=== PATIENT | female | born 1985 | race Caucasian/White ===

== ENCOUNTER 2017-06-22 13:53 | Emergency (ER) | payer OTHER ==
--- NOTE | 2017-06-22 14:43 | EDPHY ---
H & P Stated Complaint: RUQ ABD PAIN/RADIATES INTO BACK AND R SCAPULAR AREA/COLICKY HPI/ROS: HPI CHIEF COMPLAINT: Abdominal pain HISTORY OF PRESENT ILLNESS: Patient is a very pleasant 31 old female otherwise healthy no significant medical history does not take any daily medications she presents emergency room with right upper quadrant epigastric abdominal pain. She describes as starting initially on Sunday. It has been intermittent and persistent over the past week. Worse after she eats and drinks. Denies chest pain or pleuritic pain however she does report that she has pain radiating to her right shoulder. He became more intense this morning. No vomiting. No fever. No lower abdominal pain. Denies being . Past Medical History: Denies medical history Past Surgical History: Tonsillectomy and wisdom teeth. Social History: Drinks 8 beers per week she works at [employer], smokes marijuana , denies tobacco. Or other illicit drugs. Family History: Noncontributory ROS REVIEW OF SYSTEMS: A comprehensive 10 point review of systems is otherwise negative aside from elements mentioned in the history of present illness. Exam Constitutional appears well nontoxic triage nursing summary reviewed, vital signs reviewed, awake/alert. Eyes normal conjunctivae and sclera, EOMI, PERRLA. HENT normal inspection, atraumatic, moist mucus membranes, no epistaxis, neck supple/ no meningismus, no raccoon eyes. Respiratory clear to auscultation bilaterally, normal breath sounds, no respiratory distress, no wheezing. Cardiovascular rate normal, regular rhythm, no murmur, no edema, distal pulses normal. Gastrointestinal tender palpation right upper quadrant epigastric,, no rebound, no guarding, normal bowel sounds, no distension, no pulsatile mass. Genitourinary no CVA tenderness. Musculoskeletal no midline vertebral tenderness, full range of motion, no calf swelling, no tenderness of extremities, no meningismus, good pulses, neurovascularly intact. Skin pink, warm, & dry, no rash, skin atraumatic. Neurologic awake, alert and oriented x 3, AAOx3, moves all 4 extremities equally, motor intact, sensory intact, CN II-XII intact, normal cerebellar, normal vision, normal speech. Psychiatric normal mood/affect. Heme/Lymph/Immune no lymphadenopathy. Differential Diagnosis:Differential diagnosis includes but is not limited to and in no particular order: Bowel obstruction, appendicitis, gallbladder disease, diverticulitis, colitis, enteritis, perforated viscus, gastritis, GERD , esophagitis, urinary tract infection, pyelonephritis, kidney stones Medical Decision Making: IV establishment, IV fluid bolus, 0.5 mg IV Dilaudid for pain control IV Zofran 4 mg for nausea, ultrasound right upper quadrant. Blood work. Urinalysis re-evaluate Re-evaluation: Ultrasound of the abdomen limited right upper quadrant The results of the study are negative for acute cholecystitis or significant gallstones however there is a gallbladder polyp stable from previous ultrasound. I discussed the results of this study with the radiologist Dr. Darling EKG interpretation by me on record in Fingerprint system. Impression time of EKG 1523, this is sinus rhythm rate of 90. I do not appreciate acute ischemic changes. No ST elevation. ST depression or significant interval abnormality. 180: This patient D-dimer is noted to be positive. Will proceed with CT scan angiogram chest is CT scan abdomen pelvis with IV contrast to help delineate this right upper quadrant abdominal pain. Radiates to right shoulder. Her CT angiogram of her chest called to me by Dr. Lopez. There is no evidence of pulmonary embolism pneumonia pleural effusion or inflammatory process in the right lung field. CT scan abdomen pelvis with IV contrast shows no acute intra- abdominal pathology. I went over this with the patient. Went over CT scan result blood work. Unclear exactly was causing her pain. I will recommend Zantac for 2 weeks. It is possible this is an ulcer giving her pain given the pain gets worse after she eats and drinks. Recommend GI follow-up. Additionally strict return precautions were given she understands return emergency room if she develops worsening abdominal pain chest pain shortness of breath fever or vomiting. She understands. Source: Patient - Personal History LMP (Females 10-55): IUD In Place Current Tetanus/Diphtheria Vaccine: No - Medical/Surgical History Hx Asthma: No Hx Chronic Respiratory Disease: No Hx Diabetes: No Hx Cardiac Disease: No Hx Renal Disease: No Hx Cirrhosis: No Hx Alcoholism: No Hx HIV/AIDS: No Hx Splenectomy or Spleen Trauma: No Other PMH: TONSILECTOMY, WISDOM TEETH/ fx l arm - Social History Smoking Status: Former smoker Constitutional: Initial Vital Signs Temperature (C) 36.7 C 06/22/17 13:56 Heart Rate 78 06/22/17 13:56 Respiratory Rate 17 06/22/17 13:56 Blood Pressure 135/99 H 06/22/17 13:56 O2 Sat (%) 98 06/22/17 13:56 O2 Delivery Mode Room Air Allergies/Adverse Reactions: No Known Allergies Allergy (Verified 06/22/17 13:55) Home Medications: Medication Instructions Recorded Ranitidine HCl [Zantac] 150 mg PO DAILY #14 tablet 06/22/17 Medical Decision Making - Diagnostics Imaging Results: Imaging Impressions Abdomen Ultrasound 06/22/17 14:48 Impression: 1. Slight increase in size of a likely benign gallbladder polyp, since December 2014. Continued ultrasound follow-up is recommended, perhaps annually. 2. No source for right upper quadrant pain identified. Results called and discussed with Naun Garcia MD, at 06/22/2017 15:31 Chest X-Ray 06/22/17 15:43 Impression: Clear lungs. No acute process. Abdomen CT 06/22/17 16:35 Impression: 1. Mild constipation. 2. Appendicolith without evidence of appendicitis, bowel obstruction, or abscess. 3. No hepatosplenomegaly or ascites. 4. No significant adenopathy. Findings and recommendations discussed with Emergency Department physician, Naun Garcia MD at 1757 hour, 06/22/2017. Final report concurs with initial preliminary interpretation. Chest/Thorax CTA 06/22/17 16:35 Impression: 1. No definite pulmonary thromboemboli. 2. No aortic aneurysm or dissection. 3. No acute pulmonary disease. Findings and recommendations discussed with Emergency Department physician, Naun Garcia MD at 1750 hour, 06/22/2017. Final report concurs with initial preliminary interpretation. - Data Points Laboratory Results: Laboratory Results 06/22/17 14:45 06/22/17 14:45 06/22/17 06/22/17 06/22/17 14:50 14:45 14:45 WBC RBC Hgb Hct MCV MCH MCHC RDW Plt Count MPV Neut % (Auto) Lymph % (Auto) [place] % (Auto) Eos % (Auto) Baso % (Auto) Nucleat RBC Rel Count Absolute Neuts (auto) Absolute Lymphs (auto) Absolute Monos (auto) Absolute Eos (auto) Absolute Basos (auto) Absolute Nucleated RBC Immature Gran % Immature Gran # D-Dimer 1.97 ug/mLFEU H ug/mLFEU (0.00-0.50) Sodium Potassium Chloride Carbon Dioxide Anion Gap BUN Creatinine Estimated GFR Glucose Calcium Phosphorus Total Bilirubin Conjugated Bilirubin Unconjugated Bilirubin AST ALT Alkaline Phosphatase Total Protein Albumin Lipase Beta HCG, Qual NEGATIVE Urine Color PALE YELLOW Urine Appearance CLEAR Urine pH 7.0 (5.0-7.5) Ur Specific [place] 1.002 (1.002-1.030) Urine Protein NEGATIVE (NEGATIVE) Urine Ketones NEGATIVE (NEGATIVE) Urine Blood NEGATIVE (NEGATIVE) Urine Nitrate NEGATIVE (NEGATIVE) Urine Bilirubin NEGATIVE (NEGATIVE) Urine Urobilinogen NEGATIVE EU EU (0.2-1.0) Ur Leukocyte Esterase NEGATIVE (NEGATIVE) Urine Glucose NEGATIVE (NEGATIVE) 06/22/17 06/22/17 14:45 14:45 WBC 7.32 10^3/uL 10^3/uL (3.80-9.50) RBC 4.54 10^6/uL 10^6/uL (4.18-5.33) Hgb 16.2 g/dL g/dL (12.6-16.3) Hct 44.7 % % (38.0-47.0) MCV 98.5 fL fL (81.5-99.8) MCH 35.7 pg H pg (27.9-34.1) MCHC 36.2 g/dL g/dL (32.4-36.7) RDW 11.5 % % (11.5-15.2) Plt Count 225 10^3/uL 10^3/uL (150-400) MPV 9.5 fL fL (8.7-11.7) Neut % (Auto) 74.9 % H % (39.3-74.2) Lymph % (Auto) 19.1 % % (15.0-45.0) [place] % (Auto) 4.9 % % (4.5-13.0) Eos % (Auto) 0.4 % L % (0.6-7.6) Baso % (Auto) 0.4 % % (0.3-1.7) Nucleat RBC Rel Count 0.0 % % (0.0-0.2) Absolute Neuts (auto) 5.48 10^3/uL 10^3/uL (1.70-6.50) Absolute Lymphs (auto) 1.40 10^3/uL 10^3/uL (1.00-3.00) Absolute Monos (auto) 0.36 10^3/uL 10^3/uL (0.30-0.80) Absolute Eos (auto) 0.03 10^3/uL 10^3/uL (0.03-0.40) Absolute Basos (auto) 0.03 10^3/uL 10^3/uL (0.02-0.10) Absolute Nucleated RBC 0.00 10^3/uL 10^3/uL (0-0.01) Immature Gran % 0.3 % % (0.0-1.1) Immature Gran # 0.02 10^3/uL 10^3/uL (0.00-0.10) D-Dimer Sodium 145 mEq/L H mEq/L (134-144) Potassium 4.2 mEq/L mEq/L (3.5-5.2) Chloride 100 mEq/L mEq/L (97-110) Carbon Dioxide 25 mEq/l mEq/l (22-31) Anion Gap 20 mEq/L H mEq/L (8-16) BUN 8 mg/dL mg/dL (7-23) Creatinine 0.6 mg/dL mg/dL (0.6-1.0) Estimated GFR > 60 Glucose 79 mg/dL mg/dL (70-100) Calcium 10.9 mg/dL H mg/dL (8.5-10.4) Phosphorus 3.3 mg/dL mg/dL (2.5-4.5) Total Bilirubin 1.0 mg/dL mg/dL (0.1-1.4) Conjugated Bilirubin 0.3 mg/dL mg/dL (0.0-0.5) Unconjugated Bilirubin 0.7 mg/dL mg/dL (0.0-1.1) AST 40 IU/L IU/L (14-46) ALT 42 IU/L IU/L (9-52) Alkaline Phosphatase 51 IU/L IU/L (38-126) Total Protein 9.7 g/dL H g/dL (6.3-8.2) Albumin 5.5 g/dL H g/dL (3.5-5.0) Lipase 202 IU/L IU/L (23-300) Beta HCG, Qual Urine Color Urine Appearance Urine pH Ur Specific [place] Urine Protein Urine Ketones Urine Blood Urine Nitrate Urine Bilirubin Urine Urobilinogen Ur Leukocyte Esterase Urine Glucose Medications Given: Discontinued Medications Hydromorphone HCl (Dilaudid) 0.5 mg IVP EDNOW ONE Stop: 06/22/17 14:48 Last Admin: 06/22/17 14:55 Dose: 0.5 mg Hydromorphone HCl (Dilaudid) 1 mg IVP EDNOW ONE Stop: 06/22/17 16:06 Last Admin: 06/22/17 16:08 Dose: 1 mg Sodium Chloride (Ns) 1,000 mls @ 0 mls/hr IV EDNOW ONE; Wide Open PRN Reason: Protocol Stop: 06/22/17 14:48 Last Admin: 06/22/17 14:55 Dose: 1,000 mls Sodium Chloride (Ns) 1,000 mls @ 0 mls/hr IV ONCE ONE PRN Reason: Wide Open Stop: 06/22/17 16:36 Last Admin: 06/22/17 17:01 Dose: 1,000 mls Ondansetron HCl (Zofran) 4 mg IVP EDNOW ONE Stop: 06/22/17 14:48 Last Admin: 06/22/17 14:56 Dose: 4 mg Departure - Departure Disposition: Home, Routine, Self-Care Clinical Impression: Abdominal pain Qualifiers: Abdominal location: right upper quadrant Qualified Code(s): R10.11 - Right upper quadrant pain Condition: Good Instructions: Acute Abdominal Pain (ED) Additional Instructions: 1. Please make a follow-up appoint with Gastroenterology. 2. Take Zantac for 2 weeks. No spicy fatty greasy foods. 3. Return emergency room if develops worsening abdominal pain fever vomiting. Referrals: NONE *PRIMARY CARE P,. [Primary Care Provider] - As per Instructions Perico Cruz MD [Medical Doctor] - As per Instructions Prescriptions: Ranitidine HCl [Zantac] 150 mg PO DAILY #14 tablet
[2017-06-22] MEDS ORDERED: HYDROmorphONE/DILAUDID 1 MG/ML INJ IVP ONE ×2 (14:47→16:05)
[2017-06-22] MEDS ORDERED: ONDANSETRON 4 MG/2 ML VIAL IVP ONE (14:47)
[2017-06-22] MEDS ORDERED: NS 1,000 ML IV ONE ×2 (14:47→16:35)
[2017-06-22 14:57] LABS: % IMMATURE GRANULYOCYTES 0.3 % (0.0-1.1); ABSOLUTE IMMATURE GRANULOCYTES 0.02 10^3/uL (0.00-0.10); ADD DIFF? NO; ADD MORPH? NO; ADD SCAN? NO; ATYPICAL LYMPHOCYTE FLAG 0 (0-99); FRAGMENT RBC FLAG 0 (0-99); HEMATOCRIT 44.7 % (38.0-47.0); HEMOGLOBIN 16.2 g/dL (12.6-16.3); LEFT SHIFT FLG 0 (0-99); LIPEMIA HEMOLYSIS FLAG 90 (0-99); MEAN CELL HEMOGLOBIN 35.7 pg (27.9-34.1); MEAN CELL HEMOGLOBIN CONCENTR. 36.2 g/dL (32.4-36.7); MEAN CELL VOLUME 98.5 fL (81.5-99.8); MEAN PLATELET VOLUME 9.5 fL (8.7-11.7); PLATELET CLUMPS FLAG 10 (0-99); PLATELET COUNT 225 10^3/uL (150-400); RED BLOOD CELL COUNT 4.54 10^6/uL (4.18-5.33); RED CELL DISTRIBUTION WIDTH 11.5 % (11.5-15.2)
[2017-06-22 15:06] LABS: COLOR PALE YELLOW; LEUKOCYTE ESTERASE,URINE NEGATIVE (NEGATIVE); NITRITE,URINE NEGATIVE (NEGATIVE)
[2017-06-22 15:14] LABS: ALANINE AMINOTRANSFERASE 42 IU/L (9-52); ALBUMIN 5.5 g/dL (3.5-5.0); ALKALINE PHOSPHATASE 51 IU/L (38-126); ANION GAP 20 mEq/L (8-16); ASPARTATE AMINOTRANSFERASE 40 IU/L (14-46); BILIRUBIN-CONJUGATED 0.3 mg/dL (0.0-0.5); BILIRUBIN-UNCONJUGATED 0.7 mg/dL (0.0-1.1); CALCIUM 10.9 mg/dL (8.5-10.4); CARBON DIOXIDE 25 mEq/l (22-31); CHLORIDE 100 mEq/L (97-110); CREATININE 0.6 mg/dL (0.6-1.0); GLOMERULAR FILTRATION RATE > 60; GLUCOSE 79 mg/dL (70-100); POTASSIUM 4.2 mEq/L (3.5-5.2); SODIUM 145 mEq/L (134-144); TOTAL PROTEIN 9.7 g/dL (6.3-8.2)
--- NOTE | 2017-06-22 15:25 | CPEKG ---
Heart Rate: 90 RR Interval: 667 P-R Interval: 140 QRSD Interval: 90 QT Interval: 372 QTC Interval: 455 P Sabael: 42 QRS Sabael: 87 T Wave Sabael: 8 EKG Severity - BORDERLINE ECG - EKG Impression: SINUS RHYTHM EKG Impression: LOW VOLTAGE IN FRONTAL LEADS EKG Impression: BORDERLINE T ABNORMALITIES, ANTERIOR LEADS Electronically Signed By: Naun Garcia 22-Jun-2017 22:59:31
[2017-06-22] MEDS ORDERED: HYDROmorphONE/DILAUDID 1 MG/ML INJ ONE (16:06)
[2017-06-22] MEDS ORDERED: IOPAMIDOL (ISOVUE 370) 100 ML BTL IV ONE (16:53)
[2017-06-22 18:37] VITALS: BP 125/81; PULSE 80; RESP 17; TEMP 98.4; O2SAT 91
== END 2017-06-22 18:38 | disposition home or self-care (01) ==
DX: R10.11 Right upper quadrant pain (principal); E86.9 Volume depletion, unspecified; Z87.891 Personal history of nicotine dependence
CPT/HCPCS: 96374; J1170; J2405; Q9967